=== PATIENT | male | born 1985 | race Caucasian/White ===

== ENCOUNTER 2017-07-09 13:53 | Emergency (ER) | payer SELFPAY ==
[~2017-07-09] VITALS: Ht 190.5 cm; Wt 70.0 kg
[~2017-07-09 13:53] MED LIST: NOCURR
[2017-07-09] MEDS ORDERED: IBUPROFEN 800 MG TABLET PO ONE (16:15)
[2017-07-09 16:53] VITALS: BP 120/78
== END 2017-07-09 16:56 | disposition home or self-care (01) ==
LOC: EMS 13:54
DX: L02.415 Cutaneous abscess of right lower limb (principal)
CPT/HCPCS: 99283

== ENCOUNTER 2017-09-23 18:12 | Inpatient (IN) | payer OTHER ==
[~2017-09-23] VITALS: Ht 182.9 cm; Wt 77.6 kg
[2017-09-23] MEDS ORDERED: LORazepam 1 MG TABLET PO ONE (18:45)
[2017-09-23] MEDS ORDERED: ASPIRIN 325 MG TABLET PO ONE (18:45)
[2017-09-23 19:03] LABS: BASOPHILS % (AUTO) 0.3 % (0.0-2.0); EOSINOPHILS % (AUTO) 1.1 % (1.0-6.0); HEMATOCRIT 41.1 % (41-53); HEMOGLOBIN 14.2 g/dL (13.5-17.5); LYMPHOCYTES # (AUTO) 1.6 K/uL (1.0-4.8); LYMPHOCYTES % (AUTO) 15.4 % (22.0-44.0); MEAN CORPUSCULAR HEMOGLOBIN 30.7 pg (26.0-34.0); MEAN CORPUSCULAR HGB CONC 34.6 G/dL (31.0-37.0); MEAN CORPUSCULAR VOLUME 89 fL (80-100); MONOCYTES # (AUTO) 0.8 K/uL (0.1-1.0); MONOCYTES % (AUTO) 7.9 % (2.0-9.0); NEUTROPHILS # (AUTO) 7.6 K/uL (1.8-7.7); NEUTROPHILS % (AUTO) 75.3 % (40.0-70.0); PLATELET COUNT (AUTO) 203 K/uL (150-450); RED BLOOD CELL COUNT(AUTO) 4.63 MIL/uL (4.50-5.90); RED CELL DISTRIBUTION WIDTH 14.7 % (11.5-14.5); WHITE BLOOD COUNT (AUTO) 10.1 K/uL (4.5-11.0)
[2017-09-23 19:25] LABS: ALBUMIN 4.6 g/dL (3.4-5.0); BILIRUBIN,TOTAL 1.7 mg/dL (0.1-1.0); CALCIUM, TOTAL 9.5 mg/dL (8.8-10.5); TOTAL PROTEIN, SERUM 7.9 g/dL (6.4-8.2)
[2017-09-23 19:28] LABS: POTASSIUM 2.9 mmol/L (3.5-5.1)
[2017-09-23] MEDS ORDERED: POTASSIUM CHLORIDE 20 MEQ ER TABLET PO ONE (19:45)
[2017-09-23] MEDS ORDERED: SODIUM CHLORIDE 0.9% 1,000 ML IV ONE (19:45)
[2017-09-23] MEDS ORDERED: 0.9% SODIUM CHLORIDE 10 ML SYRINGE IVP PRN (21:45)
[2017-09-23] MEDS ORDERED: MORPHINE SULFATE 2 MG/ML SYRINGE IVP PRN (21:45)
[2017-09-23] MEDS ORDERED: IPRATROPIUM BROMIDE 0.5 MG/2.5 ML NEB SOLUTION NEB PRN (21:45)
[2017-09-23] MEDS ORDERED: HYDROCODONE/ACETAMINOPHEN 5-325 MG TABLET PO PRN (21:45)
[2017-09-23] MEDS ORDERED: HydrALAZINE HCL 20 MG/ML VIAL IVP PRN (21:45)
[2017-09-23] MEDS ORDERED: ONDANSETRON HCL 4 MG/2 ML VIAL IVP PRN ×2 (21:45)
[2017-09-23] MEDS ORDERED: BISACODYL 10 MG RECTAL RECTAL SUPPOSITORY PR PRN (21:45)
[2017-09-23] MEDS ORDERED: ACETAMINOPHEN 325 MG TABLET PO PRN ×2 (21:45)
[2017-09-23] MEDS ORDERED: NITROGLYCERIN 0.4 MG SUBLINGUAL TABLET #25 SL PRN (21:45)
[2017-09-23] MEDS ORDERED: MAGNESIUM HYDROXIDE SUSPENSION 30 ML UDCUP PO PRN (21:45)
[2017-09-23] MEDS ORDERED: POTASSIUM CHL 20 MEQ/0.45% NS 1,000 ML IV ONE (22:00)
[2017-09-23 23:31] VITALS: BP 117/50
[2017-09-24 05:26] VITALS: BP 110/56
[2017-09-24 07:14] VITALS: BP 112/63
[2017-09-24 08:16] LABS: EOSINOPHILS % (AUTO) 5.3 % (1.0-6.0); HEMATOCRIT 36.6 % (41-53); HEMOGLOBIN 12.7 g/dL (13.5-17.5); LYMPHOCYTES # (AUTO) 1.6 K/uL (1.0-4.8); LYMPHOCYTES % (AUTO) 27.8 % (22.0-44.0); MEAN CORPUSCULAR HEMOGLOBIN 30.9 pg (26.0-34.0); MEAN CORPUSCULAR HGB CONC 34.8 G/dL (31.0-37.0); MEAN CORPUSCULAR VOLUME 89 fL (80-100); MONOCYTES # (AUTO) 0.5 K/uL (0.1-1.0); MONOCYTES % (AUTO) 9.3 % (2.0-9.0); NEUTROPHILS # (AUTO) 3.3 K/uL (1.8-7.7); NEUTROPHILS % (AUTO) 56.6 % (40.0-70.0); PLATELET COUNT (AUTO) 182 K/uL (150-450); RED BLOOD CELL COUNT(AUTO) 4.12 MIL/uL (4.50-5.90); RED CELL DISTRIBUTION WIDTH 14.7 % (11.5-14.5); WHITE BLOOD COUNT (AUTO) 5.8 K/uL (4.5-11.0)
[2017-09-24 08:26] LABS: PROTHROMBIN TIME 10.7 SEC (9.4-11.6)
[2017-09-24 08:40] LABS: ALANINE AMINOTRANSFERASE 316 U/L (12-78); ALBUMIN 3.8 g/dL (3.4-5.0); ANION GAP 9 mmol/L (8-16); ASPARTATE AMINOTRANSFERASE 789 U/L (15-37); BILIRUBIN,TOTAL 1.1 mg/dL (0.1-1.0); CALCIUM, TOTAL 8.6 mg/dL (8.8-10.5); CARBON DIOXIDE 25 mmol/L (22-29); CHLORIDE 105 mmol/L (98-107); CREATININE 1.12 mg/dL (0.60-1.30); GLOMERULAR FILTR. RATE CALC > 60 mL/min (>60); PHOSPHORUS 3.7 mg/dL (2.5-4.9); POTASSIUM 4.3 mmol/L (3.5-5.1); SODIUM SERUM 139 mmol/L (136-145); TOTAL PROTEIN, SERUM 6.9 g/dL (6.4-8.2); UREA NITROGEN, BLOOD 42 mg/dL (7-18)
[2017-09-24 09:00] LABS: CREATINE KINASE MB 178.5 ng/mL (0-5)
[2017-09-24] MEDS ORDERED: PANTOPRAZOLE SODIUM 40 MG DR TABLET PO SCH (09:00)
[2017-09-24] MEDS ORDERED: ENOXAPARIN SODIUM 40 MG/0.4 ML PF SYRINGE SQ SCH (09:00)
[2017-09-24 09:22] LABS: CREATINE KINASE, TOTAL 36425 U/L (39-308)
[2017-09-24 10:44] LABS: HEPATITIS Bs ANTIGEN SCREEN P Negative (Negative); HEPATITIS C AB SCREEN <0.1 s/co ratio (0.0-0.9)
== END 2017-09-24 09:25 | disposition left against medical advice (07) | DRG 469 ==
LOC: EMS 18:13 → 5N 22:10
PROVIDERS: ADMIT Hospitalist; ATTEND Hospitalist
DX: N17.9 Acute kidney failure, unspecified (principal); R64 Cachexia; M62.82 Rhabdomyolysis; E87.8 Other disorders of electrolyte and fluid balance, not elsewhere classified; E86.0 Dehydration; R00.0 Tachycardia, unspecified; R74.0 Nonspecific elevation of levels of transaminase and lactic acid dehydrogenase [LDH]; Z53.21 Procedure and treatment not carried out due to patient leaving prior to being seen by health care provider; Z68.23 Body mass index [BMI] 23.0-23.9, adult; F14.10 Cocaine abuse, uncomplicated; E87.6 Hypokalemia; F15.10 Other stimulant abuse, uncomplicated; Z76.5 Malingerer [conscious simulation]; Z91.19 Patient's noncompliance with other medical treatment and regimen
CPT/HCPCS: 76705; 80074; 83735; 84100; 87389; 93005; 96360; 99285; G0480; J3480; J7030

== ENCOUNTER 2018-07-16 13:38 | Emergency (ER) | payer OTHER ==
[~2018-07-16] VITALS: Ht 185.4 cm; Wt 67.0 kg
[2018-07-16 14:56] VITALS: BP 120/71
[2018-07-16] MEDS ORDERED: DiphenhydrAMINE HCL 25 MG CAPSULE PO ONE (15:30)
== END 2018-07-16 15:54 | disposition home or self-care (01) ==
LOC: EMS 14:34
DX: S90.862A Insect bite (nonvenomous), left foot, initial encounter (principal); S40.869A Insect bite (nonvenomous) of unspecified upper arm, initial encounter; L74.0 Miliaria rubra; F17.210 Nicotine dependence, cigarettes, uncomplicated; W57.XXXA Bitten or stung by nonvenomous insect and other nonvenomous arthropods, initial encounter; Y93.89 Activity, other specified; Y92.89 Other specified places as the place of occurrence of the external cause; Y99.8 Other external cause status
CPT/HCPCS: 99282

== ENCOUNTER 2018-10-08 23:59 | Emergency (ER) | payer OTHER ==
[~2018-10-08] VITALS: Ht 190.5 cm; Wt 72.7 kg
[2018-10-09 01:57] LABS: APPEARANCE,URINE CLEAR (CLEAR); BILIRUBIN,URINE NEGATIVE (NEGATIVE); GLUCOSE, URINE (UA) NEGATIVE (NEGATIVE); KETONES,URINE NEGATIVE (NEGATIVE); LEUKOCYTE ESTERASE ,URINE NEGATIVE (NEGATIVE); NITRATE,URINE NEGATIVE (NEGATIVE); OCCULT BLOOD,URINE NEGATIVE (NEGATIVE); PH,URINE 7.5 (5.0-8.0); PROTEIN,URINE NEGATIVE (NEGATIVE); UROBILINOGEN,URINE 0.2 mg/dL (<=1.0)
[2018-10-09 02:06] LABS: BASOPHILS % (AUTO) 2.6 % (0.0-2.0); EOSINOPHILS % (AUTO) 3.1 % (1.0-6.0); HEMATOCRIT 37.4 % (41-53); HEMOGLOBIN 12.9 g/dL (13.5-17.5); LYMPHOCYTES # (AUTO) 2.2 K/uL (1.0-4.8); LYMPHOCYTES % (AUTO) 34.6 % (22.0-44.0); MEAN CORPUSCULAR HEMOGLOBIN 31.2 pg (26.0-34.0); MEAN CORPUSCULAR HGB CONC 34.5 G/dL (31.0-37.0); MEAN CORPUSCULAR VOLUME 90 fL (80-100); MONOCYTES # (AUTO) 0.4 K/uL (0.1-1.0); MONOCYTES % (AUTO) 6.6 % (2.0-9.0); NEUTROPHILS # (AUTO) 3.3 K/uL (1.8-7.7); NEUTROPHILS % (AUTO) 53.1 % (40.0-70.0); PLATELET COUNT (AUTO) 214 K/uL (150-450); RED BLOOD CELL COUNT(AUTO) 4.14 MIL/uL (4.50-5.90); RED CELL DISTRIBUTION WIDTH 14.5 % (11.5-14.5)
[2018-10-09 02:16] LABS: ANION GAP 2 mmol/L (8-16); CALCIUM, TOTAL 9.1 mg/dL (8.8-10.5); CARBON DIOXIDE 35 mmol/L (22-29); CHLORIDE 102 mmol/L (98-107); CREATININE 0.96 mg/dL (0.60-1.30); GLOMERULAR FILTR. RATE CALC > 60 mL/min (>60); GLUCOSE,RANDOM 81 mg/dL (70-110); POTASSIUM 4.1 mmol/L (3.5-5.1); SODIUM SERUM 139 mmol/L (136-145); UREA NITROGEN, BLOOD 20 mg/dL (7-18)
[2018-10-09 02:22] LABS: ALANINE AMINOTRANSFERASE 55 U/L (12-78); ALBUMIN 4.2 g/dL (3.4-5.0); ALKALINE PHOSPHATASE 78 U/L (46-116); ASPARTATE AMINOTRANSFERASE 26 U/L (15-37); BILIRUBIN,TOTAL 0.5 mg/dL (0.1-1.0); LIPASE 91 U/L (73-393); TOTAL PROTEIN, SERUM 7.6 g/dL (6.4-8.2)
[2018-10-09 02:52] LABS: AMPHET/METH SCREEN,URINE POSITIVE (NEGATIVE); BARBITURATE SCREEN, URINE NEGATIVE (NEGATIVE); BENZODIAZEPINES SCREEN,URINE NEGATIVE (NEGATIVE); CANNABINOID SCREEN,URINE POSITIVE (NEGATIVE); COCAINE SCREEN,URINE NEGATIVE (NEGATIVE); METHADONE SCREEN, URINE NEGATIVE (NEGATIVE); OPIATE SCREEN,URINE NEGATIVE (NEGATIVE)
[2018-10-09 02:53] LABS: PHENCYCLIDINE SCREEN,URINE NEGATIVE (NEGATIVE)
[2018-10-09] MEDS ORDERED: ONDANSETRON HCL 4 MG/2 ML VIAL IM ONE (03:00)
[2018-10-09 03:15] VITALS: BP 142/67
== END 2018-10-09 03:36 | disposition home or self-care (01) ==
LOC: EMS 10-09 00:05
DX: R11.2 Nausea with vomiting, unspecified (principal); R10.9 Unspecified abdominal pain; F15.10 Other stimulant abuse, uncomplicated; F17.210 Nicotine dependence, cigarettes, uncomplicated
CPT/HCPCS: 36415; 80053; 80307; 81003; 83690; 85025; 96372; 99283; 99406; J2405

== ENCOUNTER 2018-10-09 12:37 | Emergency (ER) | payer OTHER ==
[~2018-10-09] VITALS: Ht 190.5 cm; Wt 72.7 kg
[2018-10-09 13:45] VITALS: BP 118/67
== END 2018-10-09 14:21 | disposition home or self-care (01) ==
LOC: EMS 12:39
DX: S60.862A Insect bite (nonvenomous) of left wrist, initial encounter (principal); L08.9 Local infection of the skin and subcutaneous tissue, unspecified; F17.210 Nicotine dependence, cigarettes, uncomplicated; F15.90 Other stimulant use, unspecified, uncomplicated; W57.XXXA Bitten or stung by nonvenomous insect and other nonvenomous arthropods, initial encounter; Y93.89 Activity, other specified; Y92.89 Other specified places as the place of occurrence of the external cause; Y99.8 Other external cause status
CPT/HCPCS: 99406

== ENCOUNTER 2020-07-21 04:19 | Emergency (ER) | payer OTHER ==
[~2020-07-21] VITALS: Ht 190.5 cm; Wt 72.7 kg
[2020-07-21] MEDS ORDERED: LORazepam 1 MG TABLET PO ONE (05:00)
[2020-07-21 05:15] LABS: BASOPHILS % (AUTO) 2.5 % (0.0-2.0); EOSINOPHILS % (AUTO) 2.3 % (1.0-6.0); HEMATOCRIT 43.1 % (41-53); HEMOGLOBIN 14.4 g/dL (13.5-17.5); LYMPHOCYTES # (AUTO) 1.8 K/uL (1.0-4.8); LYMPHOCYTES % (AUTO) 22.9 % (22.0-44.0); MEAN CORPUSCULAR HEMOGLOBIN 29.6 pg (26.0-34.0); MEAN CORPUSCULAR HGB CONC 33.3 G/dL (31.0-37.0); MEAN CORPUSCULAR VOLUME 89 fL (80-100); MONOCYTES # (AUTO) 0.9 K/uL (0.1-1.0); NEUTROPHILS % (AUTO) 61.3 % (40.0-70.0); PLATELET COUNT (AUTO) 265 K/uL (150-450); RED BLOOD CELL COUNT(AUTO) 4.85 MIL/uL (4.50-5.90); RED CELL DISTRIBUTION WIDTH 15.2 % (11.5-14.5)
[2020-07-21] MEDS ORDERED: LORazepam 2 MG/ML VIAL IVP ONE (05:15)
[2020-07-21 05:21] LABS: CREATININE 1.46 mg/dL (0.60-1.30); POTASSIUM 3.4 mmol/L (3.5-5.1)
[2020-07-21 05:22] LABS: CALCIUM, TOTAL 10.2 mg/dL (8.8-10.5)
[2020-07-21 05:28] LABS: ALBUMIN 4.5 g/dL (3.4-5.0); BILIRUBIN,TOTAL 0.9 mg/dL (0.1-1.0); TOTAL PROTEIN, SERUM 8.7 g/dL (6.4-8.2)
[2020-07-21 08:34] VITALS: BP 118/70
== END 2020-07-21 08:30 | disposition home or self-care (01) ==
LOC: EMS 04:19
DX: F41.9 Anxiety disorder, unspecified (principal); R06.00 Dyspnea, unspecified; F15.10 Other stimulant abuse, uncomplicated; R79.89 Other specified abnormal findings of blood chemistry; F17.210 Nicotine dependence, cigarettes, uncomplicated; F12.90 Cannabis use, unspecified, uncomplicated
CPT/HCPCS: 36415; 71045; 80053; 84484; 85025; 93005; 96374; 99285; J2060

== ENCOUNTER 2020-11-01 14:58 | Emergency (ER) | payer OTHER ==
[~2020-11-01] VITALS: Ht 180.3 cm; Wt 75.0 kg
[2020-11-01 15:03] VITALS: BP 152/88
[2020-11-01] MEDS ORDERED: IBUPROFEN 800 MG TABLET PO ONE (17:45)
== END 2020-11-01 17:59 | disposition home or self-care (01) ==
LOC: EMS 14:58
DX: L03.011 Cellulitis of right finger (principal); F17.210 Nicotine dependence, cigarettes, uncomplicated; F12.90 Cannabis use, unspecified, uncomplicated; F15.90 Other stimulant use, unspecified, uncomplicated

== ENCOUNTER 2020-11-05 11:01 | Emergency (ER) | payer OTHER ==
[~2020-11-05] VITALS: Ht 180.3 cm; Wt 75.0 kg
[2020-11-05 11:03] VITALS: BP 110/72
[2020-11-05] MEDS ORDERED: LIDOCAINE 1% 10 ML VIAL SQ ONE (11:15)
[2020-11-05] MEDS ORDERED: ACETAMINOPHEN 500 MG TABLET PO ONE (11:15)
[2020-11-05] MEDS ORDERED: POVIDONE-IODINE 10% 15 ML SOLUTION UD TP ONE (11:15)
== END 2020-11-05 13:45 | disposition home or self-care (01) ==
LOC: EMS 11:05
DX: L02.511 Cutaneous abscess of right hand (principal); F12.90 Cannabis use, unspecified, uncomplicated; F15.90 Other stimulant use, unspecified, uncomplicated; F17.210 Nicotine dependence, cigarettes, uncomplicated
CPT/HCPCS: 26010; 99282; 99406; J3490